=== PATIENT | male | born 1990 | race Caucasian/White ===

== ENCOUNTER 2022-02-07 20:13 | Emergency (ER) | payer SELFPAY ==
[2022-02-07 20:14] VITALS: BP 136/88; PULSE 95; RESP 14; TEMP 36.6; O2SAT 95; BMI 23.8
[2022-02-07 20:42] VITALS: BP 136/88; PULSE 95; RESP 14; TEMP 36.6; O2SAT 95
--- NOTE | 2022-02-07 20:45 | ED.RN ---
Pt unable to open RT eye at this time due to pain and tearing up of eye so visual acuity test unable to be performed at this time.
--- NOTE | 2022-02-07 21:39 | ED.RN ---
Addendum entered by Reji Abraham RN 02/07/22 22:23: Equipment and meds taken to bedside. Pt states How long is it going to be before he comes back to do this? I have been waiting an hour and a half and I am not asking for pain meds but I just can't take this pain any longer in my eye. I would rather sign papers and not pay anything here and go somewhere else and get this taken care of. Told pt I could not predict exactly when the dr would be back but that the dr was aware that all equipment and meds were at bedside. Adv pt that if he decides to leave Against Medical Advice to call out and let nursing know and we would bring him the paperwork to sign. Pt verbalized understanding. Original Note: Dr Tan aware that all equipment and meds are at bedside.
--- NOTE | 2022-02-07 22:21 | ED.RN ---
2150- Pt seen walking out the outside doors past triage.
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
--- NOTE | 2022-02-07 22:59 | ED.RN ---
After room was cleaned and meds retreived to return to [facility], it was noted that the tetracaine eye drops were not in the room. Not in trash can, not on bed, not on floor, not on counter, also not on eye cart.
== END 2022-02-07 22:34 | disposition left against medical advice (07) ==
PROVIDERS: Emergency Provider Emergency Medicine; Visit Provider Emergency Medicine
DX: S05.91XA Unspecified injury of right eye and orbit, initial encounter (principal); R11.0 Nausea; W22.8XXA Striking against or struck by other objects, initial encounter
CPT/HCPCS: 99282